=== PATIENT | male | born 1975 | race Hispanic/Latino ===

== ENCOUNTER 2017-08-25 13:47 | Emergency (ER) | payer BC, SELFPAY ==
--- NOTE | 2017-08-25 14:58 | RAD ---
LEFT FINGER 3 VIEWS: HISTORY: Left finger injury and pain. FINDINGS/IMPRESSION: A soft tissue defect is seen in the volar aspect of the distal finger. No acute fracture or dislocat ion is identified. No radiopaque foreign body is seen. POS: [id number]
[2017-08-25] MEDS ORDERED: Adacel (T-DAP) 0.5 ML VIAL ONE (15:22)
[2017-08-25] MEDS ORDERED: Lidocaine 1% (PF) 30 ML VIAL ONE (15:48)
[2017-08-25] MEDS ORDERED: Bacitracin Zinc 1 Packet ONE (17:06)
== END 2017-08-25 17:36 | disposition home or self-care (01) ==
LOC: ERS 13:47
DX: S61.213A Laceration without foreign body of left middle finger without damage to nail, initial encounter (principal); E11.9 Type 2 diabetes mellitus without complications; E78.2 Mixed hyperlipidemia; I10 Essential (primary) hypertension; E66.9 Obesity, unspecified; Z23 Encounter for immunization; Z87.891 Personal history of nicotine dependence; Z79.84 Long term (current) use of oral hypoglycemic drugs; Z79.899 Other long term (current) drug therapy; W20.8XXA Other cause of strike by thrown, projected or falling object, initial encounter; Y92.89 Other specified places as the place of occurrence of the external cause; Y99.0 Civilian activity done for income or pay
CPT/HCPCS: 12002; 36416; 90471; 90715; J2001